=== PATIENT | female | born 1995 | race Caucasian/White ===

== ENCOUNTER 2017-08-08 16:57 | Observation (INO) | payer OTHER ==
[~2017-08-08] VITALS: Ht 170.2 cm; Wt 69.0 kg
[~2017-08-08 16:57] MED LIST: BCPILLS PO; LEVAAER2 INH
[2017-08-08] MEDS ORDERED: EpINEphrine INJ 1MG/ML AMP 1 MG/ML AMP IM STA (17:08)
[2017-08-08] MEDS ORDERED: FAMOTIDINE 20MG/102 ML D5W IV STA (17:08)
[2017-08-08] MEDS ORDERED: SODIUM CHLORIDE 0.9% 1000ML 1,000 ML IV STA ×2 (17:08→19:59)
[2017-08-08] MEDS ORDERED: DEXAMETHASONE SOD INJ 10 MG/ML VIAL IV ONE (17:15)
[2017-08-08] MEDS ORDERED: LEVO-14 PO (17:16)
[2017-08-08] MEDS ORDERED: LEVA45AE INH (17:16)
[2017-08-08 17:24] LABS: BASO % 0.1 %; BASO ABS # 0.01 K/uL (0-0.2); EOS % 1.9 %; HEMATOCRIT 39.6 % (37-47); IG% 0.1 %; LYMPH % 37.6 %; LYMPH ABS # 2.77 K/uL (1.2-3.4); MEAN CELL VOLUME 69.1 fL (80-100); MEAN CORPUSCULAR HEMOGLOBIN 22.3 pg (25-34); MEAN CORPUSCULAR HGB CONC 32.3 g/dl (32-36); MEAN PLATELET VOLUME 9.5 fL (7.4-10.4); MONO % 7.1 %; NEUT % 53.2 %; PLATELET COUNT 309 K/uL (130-400); RED BLOOD COUNT 5.73 M/uL (4.2-5.4); WHITE BLOOD COUNT 7.36 K/uL (4.8-10.8)
[2017-08-08 17:41] LABS: BUN/CREATININE RATIO 13.4 (10-20); CALCIUM 9.1 mg/dl (8.5-10.1); CREATININE 0.9 mg/dl (0.60-1.20); POTASSIUM 3.9 mmol/L (3.5-5.1)
[2017-08-08 17:47] LABS: BASO ABS # 0.07 K/uL (0-0.2); BASOPHIL % 0.9 %; COMPLETE YES; EOSINOPHIL % 0.9 %; LYMPH ABS # 1.74 K/uL (1.2-3.4); LYMPHOCYTE % 23.7 %; MICROCYTOSIS PRESENT; NEUTROPHILS % 47.3 %; VARIANT LYM ABS # 1.74 K/uL; VARIANT LYMPHOCYTE % 23.7 %
[2017-08-08 17:49] LABS: PREG INTERNAL NEGATIVE QC NEG CLEAR BACKGROUND; PREG INTERNAL POSITIVE QC POS CONTROL LINE
--- NOTE | 2017-08-08 18:06 | EMERGENCY ROOM VISIT NOTE ---
History Report prepared by Kian: Nate Chanel Under the Supervision of: Dr. Nasir Cochran D.O. First contact with patient: 17:03 Chief Complaint: ALLERGIC REACTION Stated Complaint: ALLERGIC REACTION- SOB Nursing Triage Summary: 20 min ago pt started to have allergic reaction to unkown substance and has facial swelling History of Present Illness The patient is a 22 year old female who presents to the Emergency Room with complaints of a constant allergic reaction starting prior to arrival. The patient states that she was running at the gym which is normal for her, and her palms started tingling, and then she started to get chest tightness, throat tightness, and she was having facial swelling and itching. She denies any nausea or vomiting. She states that she ate carrots and hummus before the gym, and these are the same carrots and hummus that she eats every day. She states that she took 2 Benadryl 20 minutes ago. The patient states that she has never had anything like this before, and she denies any drug allergies or peanut allergies, though she states that she has seasonal allergies. The patient states that she additionally takes control, allergy medications, and an inhaler as needed. She has had her wisdom teeth out and her tonsils out. She denies any alcohol or tobacco use. Source of History: patient Onset: prior to arrival Position: other (global) Quality: other (allergic reaction) Timing: constant Associated Symptoms: + rash, No nausea, No vomiting Note: Associated symptoms: facial swelling, chest tightness, throat tightness. Review of Systems See HPI for pertinent positives & negatives. A total of 10 systems reviewed and were otherwise negative. Past Medical & Surgical Medical Problems: (1) Anaphylactic reaction (2) Asthma (3) Left ankle sprain (4) Right ankle sprain (5) Seasonal allergies Surgical Problems: (1) Hx of tonsillectomy Social History Smoking Status: Never Smoker Housing Status: lives with family Occupation Status: [employer] student Current/Historical Medications Scheduled Control Pills ( Control Pills), 1 TAB PO DAILY Diphenhydramine Hcl (Benadryl Allergy), 25 MG PO Q6H Epinephrine (Epipen), 0.3 MG IM UD Levocetirizine Dihydrochloride (Levocetirizine Dihydrochl), 5 MG PO DAILY Methylprednisolone (Medrol Dosepak), 1 PKT PO UD Ranitidine (Zantac), 1 TAB PO BID Scheduled PRN Levalbuterol Tartrate (Levalbuterol Tartrate Hfa), 2 PUFFS INH UD PRN for Shortness of Breath Allergies Coded Allergies: Albuterol (Verified Allergy, Unknown, RACING HEART, 08/08/17) Physical Exam Vital Signs Date Time Temp Pulse Resp B/P (MAP) Pulse Ox O2 Delivery O2 Flow Rate FiO2 08/08/17 18:31 140/102 08/08/17 18:27 99 21 100 08/08/17 18:12 95 24 100 08/08/17 17:57 101 27 100 08/08/17 17:45 118 08/08/17 17:42 114 25 95 08/08/17 17:32 100 Room Air 08/08/17 17:32 100 Room Air 08/08/17 17:27 118 28 100 08/08/17 17:01 36.4 90 16 156/87 95 Room Air Physical Exam GENERAL: Patient is awake, alert, and in anxious appearing. EYES: Periorbital edema. The pupils are equal, round, and reactive. Extraocular motions intact. EARS, NOSE, MOUTH AND THROAT: Swelling in the posterior oropharynx as well as swelling to the tongue. TMs are clear bilaterally. NECK: The neck is nontender and supple. RESPIRATORY: Lung sounds are diminished throughout. No definite wheezing appreciated. CARDIOVASCULAR: Regular rate and rhythm noted there no murmurs rubs or gallops normal S1 normal S2 GASTROINTESTINAL: The abdomen is soft. Bowel sounds are present in all quadrants. Abdomen is nontender MUSCULOSKELETAL/EXTREMITIES: There is no evidence of gross deformity full range of motion is noted in the hips and shoulders SKIN: Generalized urticaria noted. No significant pedal edema noted. NEUROLOGIC: Patient is awake alert and oriented x3 Medical Decision & Procedures Laboratory Results 08/08/17 17:15 Red Blood Count 5.73, Mean Corpuscular Volume 69.1, Mean Corpuscular Hemoglobin 22.3, Mean Corpuscular Hemoglobin Concent 32.3, Mean Platelet Volume 9.5, Neutrophils (%) (Auto) 53.2, Lymphocytes (%) (Auto) 37.6, Monocytes (%) (Auto) 7.1, Eosinophils (%) (Auto) 1.9, Basophils (%) (Auto) 0.1, Neutrophils # (Auto) 3.91, Lymphocytes # (Auto) 2.77, Monocytes # (Auto) 0.52, Eosinophils # (Auto) 0.14, Basophils # (Auto) 0.01 08/08/17 17:15 Test 08/08/17 17:15 White Blood Count 7.36 K/uL (4.8-10.8) Red Blood Count 5.73 M/uL (4.2-5.4) Hemoglobin 12.8 g/dL (12.0-16.0) Hematocrit 39.6 % (37-47) Mean Corpuscular Volume 69.1 fL (80-100) Mean Corpuscular Hemoglobin 22.3 pg (25-34) Mean Corpuscular Hemoglobin Concent 32.3 g/dl (32-36) Platelet Count 309 K/uL (130-400) Mean Platelet Volume 9.5 fL (7.4-10.4) Neutrophils (%) (Auto) 53.2 % Lymphocytes (%) (Auto) 37.6 % Monocytes (%) (Auto) 7.1 % Eosinophils (%) (Auto) 1.9 % Basophils (%) (Auto) 0.1 % Neutrophils # (Auto) 3.91 K/uL (1.4-6.5) Lymphocytes # (Auto) 2.77 K/uL (1.2-3.4) Monocytes # (Auto) 0.52 K/uL (0.11-0.59) Eosinophils # (Auto) 0.14 K/uL (0-0.5) Basophils # (Auto) 0.01 K/uL (0-0.2) RDW Standard Deviation 35.4 fL (36.4-46.3) RDW Coefficient of Variation 14.1 % (11.5-14.5) Immature Granulocyte % (Auto) 0.1 % Immature Granulocyte # (Auto) 0.01 K/uL (0.00-0.02) Neutrophils % (Manual) 47.3 % Lymphocytes % (Manual) 23.7 % Variant Lymphocytes % (manual) 23.7 % Monocytes % (Manual) 3.5 % Eosinophils % (Manual) 0.9 % Basophils % (Manual) 0.9 % Neutrophils # (Manual) 3.48 K/uL (1.4-6.5) Total Absolute Neutrophils 3.48 K/uL (1.4-6.5) Lymphocytes # (Manual) 1.74 K/uL (1.2-3.4) Absolute Variant Lymphocytes 1.74 K/uL Total Absolute Lymphocytes 3.49 K/uL (1.2-3.4) Monocytes # (Manual) 0.26 K/uL (0.11-0.59) Eosinophils # (Manual) 0.07 K/uL (0-0.5) Basophils # (Manual) 0.07 K/uL (0-0.2) Microcytosis PRESENT Anion Gap 8.0 mmol/L (3-11) Est Creatinine Clear Calc Drug Dose 96.2 ml/min Estimated GFR () 105.9 Estimated GFR (Non- 91.4 BUN/Creatinine Ratio 13.4 (10-20) Calcium Level 9.1 mg/dl (8.5-10.1) Human Chorionic Gonadotropin, Qual NEG (NEG) Laboratory results per my review. Medications Administered Medications (Trade) Dose Ordered Sig/Elaine Route Start Time Stop Time Status Last Admin Dose Admin Sodium Chloride 1,000 ml @ 999 mls/hr Q1H1M STAT IV 08/08/17 17:08 08/08/17 18:08 DC 08/08/17 17:30 999 MLS/HR Epinephrine HCl (EpINEphrine INJ 1MG/ML AMP/VIAL) 0.3 mg NOW STAT IM 08/08/17 17:08 08/08/17 17:10 DC 08/08/17 17:31 0.3 MG Dexamethasone Sodium Phosphate (Decadron Inj) 10 mg NOW ONCE IV 08/08/17 17:15 08/08/17 17:16 DC 08/08/17 17:31 10 MG Famotidine (Pepcid 20mg/100 ml) 20 mg ONE STAT IV 08/08/17 17:08 08/08/17 17:10 DC 08/08/17 17:31 20 MG ED Course 1703: The patient was evaluated in room B12. A complete history and physical examination were performed. 1708: Famotidine 20mg IV, Epinephrine HCl 0.3mg IM, NSS 1,000 ml @ 999 mls/hr IV , Decadron Inj 10mg IV 1715: Decadron Inj 10mg IV 1734: I reevaluated the patient Her eyes are less swollen, and she states that she feels subjectively better. 1821: I revaluated the patient, and she still has a gravelly voice and uvular hydrops. 1851: I discussed the patient's case with Dr. Duff. The patient will be evaluated for further management. Medical Decision Differential diagnosis: Etiologies such as allergic reaction, anaphylaxis, urticaria, Bean-Wil syndrome, toxic epidermal necrolysis, erythema multiforme, cellulitis, as well as others were entertained. Nursing notes reviewed. The patient is a 22-year-old female who presented to the emergency department for evaluation of allergic reaction. The patient appeared to have angioedema which was mild as well as urticaria a significant anaphylactic reaction. There is no definite source for the allergic reaction. The patient was exercising at the time. She was treated with Benadryl prior to arrival that she took by herself. She was further treated with H2 blockers steroids and epinephrine in the emergency department. She was reevaluated multiple times. Her condition slowly improved but because of the extent of the angioedema in the oropharynx. I discussed her case with the on-call [facility] hospitalist group. They've agreed to evaluate the patient in the emergency department for further management and disposition Medication Reconcilliation Current Medication List: was personally reviewed by me Blood Pressure Screening Patient's blood pressure: Elevated blood pressure Blood pressure disposition: Elevated BP felt to be situational Consults Time Called: 1823 Consulting Physician: Dr. Duff Returned Call: 1851 I discussed the patient's case with Dr. Duff. The patient will be evaluated for further management. Impression Primary Impression: Anaphylaxis Additional Impressions: Angioedema Urticaria Scribe Attestation The scribe's documentation has been prepared under my direction and personally reviewed by me in its entirety. I confirm that the note above accurately reflects all work, treatment, procedures, and medical decision making performed by me. Departure Information Dispostion Being Evaluated By Hospitalist Prescriptions Epinephrine (EPIPEN) 0.3 Mg/0.3 Ml Inj 0.3 MG IM UD, #1 BOX 1 Refill Prov: Karina Gonsalves MD 08/09/17 Methylprednisolone (MEDROL DOSEPAK) 4 Mg Arya 1 PKT PO UD for 6 Days, #1 PKT Prov: Karina Gonsalves MD 08/09/17 Ranitidine (Zantac) 150 Mg Tab 1 TAB PO BID for 7 Days, #14 TAB 0 Refills Prov: Karina Gonsalves MD 08/09/17 Diphenhydramine Hcl (BENADRYL ALLERGY) 25 Mg Tab 25 MG PO Q6H for 7 Days OTC Prov: Karina Gonsalves MD 08/09/17 Referrals No Doctor, Assigned (PCP) Patient Instructions [facility] Problem Qualifiers Primary Impression: Anaphylaxis Encounter type: initial encounter Qualified Codes: T78.2XXA - Anaphylactic shock, unspecified, initial encounter Additional Impressions: Angioedema Encounter type: initial encounter Qualified Codes: T78.3XXA - Angioneurotic edema, initial encounter
[2017-08-08] MEDS ORDERED: ACETAMINOPHEN 325 MG TAB PO PRN (19:15)
--- NOTE | 2017-08-08 19:37 | History and Physical ---
History & Physical Date & Time of Service: Aug 08, 2017 at 19:37 Chief Complaint: Allergic Reaction- Sob Primary Care Physician: No Doctor, Assigned History of Present Illness Source: patient The patient is a 22-year-old female who presents to the emergency department with symptoms of facial swelling, periorbital edema, throat tightening and shortness of breath that began when she was running at the gym just prior to arrival. She had 1 previous episode several months ago that was less intense, when she was running at that time as well. She has not had any different food intake than usual, and no new exposures. She took 2 Benadryl at 20 minutes prior to arrival with no significant improvement in symptoms at this time. Past Medical/Surgical History Medical Problems: (1) Asthma Status: Chronic (2) Left ankle sprain Status: Resolved (3) Right ankle sprain Status: Resolved (4) Seasonal allergies Status: Chronic Surgical Problems: (1) Hx of tonsillectomy Status: Resolved Family History Noncontributory Social History Smoking Status: Never Smoker Smokeless Tobacco Use: No Alcohol Use: none Drug Use: none Marital Status: single Occupational Status: [employer] student Immunizations History of Influenza Vaccine: Unknown History of Tetanus Vaccine?: Unknown History of Pneumococcal: Unknown History of Hepatitis B Vaccine: Unknown Multi-Drug Resistant Organisms History of MDRO: No Allergies Coded Allergies: Albuterol (Verified Allergy, Unknown, RACING HEART, 08/08/17) Home Medications Scheduled Control Pills ( Control Pills), 1 TAB PO DAILY Diphenhydramine Hcl (Benadryl Allergy), 25 MG PO Q6H Epinephrine (Epipen), 0.3 MG IM UD Levocetirizine Dihydrochloride (Levocetirizine Dihydrochl), 5 MG PO DAILY Methylprednisolone (Medrol Dosepak), 1 PKT PO UD Ranitidine (Zantac), 1 TAB PO BID Scheduled PRN Levalbuterol Tartrate (Levalbuterol Tartrate Hfa), 2 PUFFS INH UD PRN for Shortness of Breath Review of Systems The patient denies chest pain, palpitations, cough, lower extremity swelling, vision change, hearing change, fevers, chills, sweats, weight change, fatigue, nausea, vomiting, diarrhea or constipation, abdominal pain, pelvic pain, blood in urine or stool, dysuria, urinary frequency or urgency, memory loss, rash, abnormal bruising or bleeding, imbalance, focal or generalized weakness, numbness or tingling in arms or legs, generalized arthralgias or myalgias, back or neck pain, or night sweats. The review of systems is otherwise negative other than for that already noted above, and at least 10 systems have been reviewed. Physical Exam Vital Signs Date Time Temp Pulse Resp B/P (MAP) Pulse Ox O2 Delivery O2 Flow Rate FiO2 08/08/17 18:31 140/102 08/08/17 18:27 99 21 100 08/08/17 18:12 95 24 100 08/08/17 17:57 101 27 100 08/08/17 17:45 118 08/08/17 17:42 114 25 95 08/08/17 17:32 100 Room Air 08/08/17 17:32 100 Room Air 08/08/17 17:27 118 28 100 08/08/17 17:01 36.4 90 16 156/87 95 Room Air The patient is awake, well-developed and adequately nourished, alert and oriented 3, has obvious facial swelling and periorbital edema, lying in bed and in no acute distress. HEENT--PERRL, EOMI, mucous membranes and oropharynx normal. Otherwise as above Neck--supple, no JVD or bruits, thyroid normal, trachea midline, no adenopathy. Heart--normal S1 and S2, no extra beats, no murmurs, rubs or gallops. Lungs--clear bilaterally with good air movement, no respiratory distress, no accessory muscle use. Abdomen--normal bowel sounds and soft, nontender and nondistended, no hernias or masses, no organomegaly. Extremities--no cyanosis, clubbing or edema. There are good distal pulses b/l. Dermatologic--normal skin turgor, normal color, warm and dry, no abnormal lymph nodes, no rash. Neurologic--cranial nerves II through XII grossly intact, motor and sensory examination normal. Rheumatologic--normal range of motion, nontender, muscles and joints. Psychiatric--normal affect. Diagnostics Laboratory Results Results Past 24 Hours Test 08/08/17 17:15 Range/Units White Blood Count 7.36 4.8-10.8 K/uL Red Blood Count 5.73 4.2-5.4 M/uL Hemoglobin 12.8 12.0-16.0 g/dL Hematocrit 39.6 37-47 % Mean Corpuscular Volume 69.1 80-100 fL Mean Corpuscular Hemoglobin 22.3 25-34 pg Mean Corpuscular Hemoglobin Concent 32.3 32-36 g/dl Platelet Count 309 130-400 K/uL Mean Platelet Volume 9.5 7.4-10.4 fL Neutrophils (%) (Auto) 53.2 % Lymphocytes (%) (Auto) 37.6 % Monocytes (%) (Auto) 7.1 % Eosinophils (%) (Auto) 1.9 % Basophils (%) (Auto) 0.1 % Neutrophils # (Auto) 3.91 1.4-6.5 K/uL Lymphocytes # (Auto) 2.77 1.2-3.4 K/uL Monocytes # (Auto) 0.52 0.11-0.59 K/uL Eosinophils # (Auto) 0.14 0-0.5 K/uL Basophils # (Auto) 0.01 0-0.2 K/uL RDW Standard Deviation 35.4 36.4-46.3 fL RDW Coefficient of Variation 14.1 11.5-14.5 % Immature Granulocyte % (Auto) 0.1 % Immature Granulocyte # (Auto) 0.01 0.00-0.02 K/uL Neutrophils % (Manual) 47.3 % Lymphocytes % (Manual) 23.7 % Variant Lymphocytes % (manual) 23.7 % Monocytes % (Manual) 3.5 % Eosinophils % (Manual) 0.9 % Basophils % (Manual) 0.9 % Neutrophils # (Manual) 3.48 1.4-6.5 K/uL Total Absolute Neutrophils 3.48 1.4-6.5 K/uL Lymphocytes # (Manual) 1.74 1.2-3.4 K/uL Absolute Variant Lymphocytes 1.74 K/uL Total Absolute Lymphocytes 3.49 1.2-3.4 K/uL Monocytes # (Manual) 0.26 0.11-0.59 K/uL Eosinophils # (Manual) 0.07 0-0.5 K/uL Basophils # (Manual) 0.07 0-0.2 K/uL Microcytosis PRESENT Sodium Level 137 136-145 mmol/L Potassium Level 3.9 3.5-5.1 mmol/L Chloride Level 105 98-107 mmol/L Carbon Dioxide Level 24 21-32 mmol/L Anion Gap 8.0 3-11 mmol/L Blood Urea Nitrogen 12 7-18 mg/dl Creatinine 0.90 0.60-1.20 mg/dl Est Creatinine Clear Calc Drug Dose 96.2 ml/min Estimated GFR () 105.9 Estimated GFR (Non- 91.4 BUN/Creatinine Ratio 13.4 10-20 Random Glucose 119 70-99 mg/dl Calcium Level 9.1 8.5-10.1 mg/dl Human Chorionic Gonadotropin, Qual NEG NEG Impression Assessment and Plan Anaphylactic reaction/cholinergic urticaria-- Patient reports no unusual exposures. She was given Benadryl IV, epinephrine IM, famotidine IV, and Decadron IV in the ED with some improvement in symptoms. She'll be admitted to telemetry unit for monitoring overnight. Famotidine 20 mg IV every 12 hours. Decadron 6 mg IV every 6 hours. Benadryl 50 mg IV every 4 hours when necessary. Consider RAST testing. Consult pulmonology/allergy for their opinion. Level of Care Telemetry Advanced Directives Existing Advance Directive: No Existing Living Will: No Existing Power of Hedis Nurse: No Resuscitation Status FULL RESUSCITATION VTE Prophylaxis VTE Risk Assessment Done? Y/N: Yes Risk Level: Moderate Given or contraindicated: SCD's Social Service Consult None Apply
[2017-08-08] MEDS: DiphenhydrAMINE HCL 50 MG/ML VIAL IV PRN (19:40)
[2017-08-08 20:54] VITALS: BP 133/84; PULSE 83; TEMP 36.3; O2SAT 100; Ht 170.2 cm; Wt 69.0 kg
[2017-08-08] MEDS ORDERED: IV FLUIDS COMPLETED PRN (21:00)
[2017-08-08] MEDS: NSS + 20MEQ KCL 1000ML 1,000 ML IV SCH (21:12)
[2017-08-08] MEDS: DEXAMETHASONE INJ 6 MG in SYRINGE 0 ML IV SCH (23:49)
[2017-08-09 00:05] VITALS: BP 115/71; PULSE 80; TEMP 37; O2SAT 97
[2017-08-09] MEDS: DiphenhydrAMINE HCL 50 MG/ML VIAL IV PRN (03:31)
[2017-08-09] MEDS: NSS + 20MEQ KCL 1000ML 1,000 ML IV SCH (03:31)
[2017-08-09 03:40] VITALS: BP 130/85; PULSE 74; TEMP 36.5; O2SAT 98
[2017-08-09] MEDS: DEXAMETHASONE INJ 6 MG in SYRINGE 0 ML IV SCH (05:54)
[2017-08-09] MEDS ORDERED: FAMOTIDINE IV INJ 20 MG in DEXTROSE 5% 100ML 100 ML IV SCH (06:00)
[2017-08-09 07:10] VITALS: BP 106/71; PULSE 71; TEMP 36.9; O2SAT 98
[2017-08-09] MEDS ORDERED: EPP3/2 IM (09:33)
[2017-08-09] MEDS ORDERED: ZNTT/150 PO (09:33)
[2017-08-09] MEDS ORDERED: METH4PAK PO (09:33)
[2017-08-09] MEDS ORDERED: DIPH1TAB PO (09:33)
--- NOTE | 2017-08-09 09:47 | Discharge Instructions ---
Discharge Instructions Date of Service Aug 09, 2017. Admission Reason for Admission: Anaphylactic Reaction Discharge Discharge Diagnosis / Problem: Anaphylactic reaction Discharge Goals Goal(s): Improve disease control, Therapeutic intervention Activity Recommendations Activity Limitations: as noted below Exercise/Sports Limitations: until after follow-up appointment Shower/Bathe: no limitations Driving or Machine Use: no limitations . Instructions / Follow-Up Instructions / Follow-Up You were admitted with an anaphylactic reaction that occurred while exercising at the [employer]. You were treated with Epi-Pen, IV steroids, Pepcid, and benadryl. You should continue on a steroid taper (Medrol Dose Pack), Benadryl, and Zantac over the next week. You will be prescribed an Epi Pen to use in case this reaction occurs again. If you have recurrence of symptoms, use your Epi Pen immediately and call 911. We will schedule you an [employer] appointment. Please also follow up with [facility] as scheduled within 1 week. Current Hospital Diet Patient's current hospital diet: Regular Diet Discharge Diet Recommended Diet: Regular Diet Pending Studies Studies pending at discharge: yes List of pending studies: IgE level Medical Emergencies . Who to Call and When: Medical Emergencies: If at any time you feel your situation is an emergency, please call 911 immediately. . Non-Emergent Contact Non-Emergency issues call your: Primary Care Provider Call Non-Emergent contact if: you have any medication questions . . "Provider Documentation" section prepared by Karina Gonsalves. . VTE Core Measure Inpt VTE Proph given/why not?: SCD's
--- NOTE | 2017-08-09 10:04 | Discharge Summary ---
Discharge Summary Date of Service Aug 09, 2017. Discharge Summary Admission Date: Aug 08, 2017 at 19:14 Discharge Date: Aug 09, 2017 Discharge Disposition: Home Principal Diagnosis: Anaphylactic reaction Problems/Secondary Diagnoses: Asthma Seasonal allergies Celiac disease Thalassemia History of hives and anaphylaxis Procedures: None Consultations: None Medication Reconciliation New Medications: Diphenhydramine Hcl (Benadryl Allergy) 25 Mg Tab 25 MG PO Q6H for 7 Days OTC Epinephrine (Epipen) 0.3 Mg/0.3 Ml Inj 0.3 MG IM UD, #1 BOX 1 Refill Methylprednisolone (Medrol Dosepak) 4 Mg Arya 1 PKT PO UD for 6 Days, #1 PKT Ranitidine (Zantac) 150 Mg Tab 1 TAB PO BID for 7 Days, #14 TAB 0 Refills Continued Medications: Control Pills ( Control Pills) Tab 1 TAB PO DAILY, TAB Levalbuterol Tartrate (Levalbuterol Tartrate Hfa) 45 Mcg/Act Aer 2 PUFFS INH UD PRN for Shortness of Breath Levocetirizine Dihydrochloride (Levocetirizine Dihydrochl) 5 Mg Tab 5 MG PO DAILY, TAB 3 Refills Discharge Exam Pt feeling much improved the AM after admission. No further SOB, no more throat swelling or hives. Still with some mild swelling around her eyes. Says this is the 4th time she has had this type of reaction, but the most severe. SHe has never had Epi-Pen before. Had allergy testing earlier this summer for environmental and food allergies, positive for cats. Has had allergy shots previously. Also had EGD and colonoscopy in [place] last week, was told she definitely has celiac disease and has been following a gluten free diet since June. Her Market Research Lead is in [place] and she is in school at [employer] so requesting local Market Research Lead. Review of Systems: Constitutional: No fever, No chills Eyes: No problem reported ENT: No nasal symptoms, No sore throat, No trouble swallowing Respiratory: No cough, No shortness of breath Cardiovascular: No chest pain Abdomen: No problem reported Musculoskeletal: No problem reported Genitourinary - Female: No problem reported Neurologic: No problem reported Psychiatric: No problem reported Endocrine: No problem reported Hematologic / Lymphatic: No problem reported Integumentary: No problem reported Physical Exam: General Appearance: WD/WN, no apparent distress Eyes: normal inspection, EOMI ENT: hearing grossly normal, pharynx normal (no swelling, uvula appears normal, airway widely patent), + pertinent finding (mild periorbital edema bilaterally) Neck: supple, no adenopathy, thyroid normal, no JVD, trachea midline Respiratory/Chest: lungs clear, normal breath sounds (no wheezing at all, moving air well), no respiratory distress, no accessory muscle use Cardiovascular: regular rate, rhythm, no edema, no gallop, no murmur, normal peripheral pulses Abdomen / GI: normal bowel sounds, non tender, soft, no organomegaly, no pulsatile mass Extremities: normal inspection, no calf tenderness, normal capillary refill , no pedal edema Neurologic/Psychiatric: alert, normal mood/affect, oriented x 3 Skin: normal color, warm/dry, no rash Lymphatic: no adenopathy Hospital Course Pt is a 22 yo female with a h/o asthma, allergies,anaphylactic reactions, hives , Celiac disease, and thalassemia, here with acute anaphylactic reaction. On the AM of admission, she ate a smoothie and eggs for breakfast, then a salad with cashews, carrots and hummus for lunch. A couple hours later she ran outside for a few blocks to the gym. After she was in the gym running on the treadmill, she developed swelling and erythema of her bilateral hands. The erythema then quickly spread up her arms and onto her chest. She then felt her face and throat swelling and had trouble breathing. She stopped running and took pictures of her facial swelling which was moderate in nature. SHe has had similar symptoms in the past but not as severe. Every time this has happened, it has involved running on a treadmill inside. She recently ran a half marathon outside and had no problems at all. Twice it has occurred at the same gym, but once it occurred at her gym in [place]. Her friend brought her to the ER where she received Epi-Pen,IV steroids,IV benadryl and Pepcid. SHe was admitted overnight for observation and continued treatment with the same medications. She had significant improvement. Blood pressure and vitals, telemetry monitoring were all within normal limits. She had almost complete resolution of her symptoms except some mild periorbital edema prior to discharge. She will go out on Medrol Dose pack, benadryl, Zantac, and be given a Rx for Epi Pen. She will continue her home Xopenex prn and Xyzal. Arrangements will be made for her to see an Market Research Lead as an outpatient locally for further testing. An IgE level was sent off prior to discharge. Total Time Spent: Greater than 30 minutes This includes examination of the patient, discharge planning, medication reconciliation, and communication with other providers. Discharge Instructions Please refer to the electronic Patient Visit Report (Discharge Instructions) for additional information. Follow-Up Market Research Lead within 2 weeks S/PCP within 1 week Additional Copies To [facility]
[2017-08-09 10:12] VITALS: BP 106/71; PULSE 71; TEMP 36.9; O2SAT 98
== END 2017-08-09 10:39 | disposition home or self-care (01) ==
LOC: C.EDB 16:58 → C.2E 19:14 → EDBEDREQ 19:16 → ENRESERV 19:41
PROVIDERS: ADMIT Hospitalist; ATTEND Family Medicine
DX: T78.2XXA Anaphylactic shock, unspecified, initial encounter (principal); R06.02 Shortness of breath; X58.XXXA Exposure to other specified factors, initial encounter; J45.909 Unspecified asthma, uncomplicated; K90.0 Celiac disease; D56.9 Thalassemia, unspecified; Z79.3 Long term (current) use of hormonal contraceptives; Z90.89 Acquired absence of other organs